=== PATIENT | male | born 1985 | race Caucasian/White ===

== ENCOUNTER 2019-06-06 19:22 | Emergency (ER) | payer OTHER ==
[~2019-06-06] VITALS: Ht 180.3 cm; Wt 102.1 kg
[2019-06-06 19:28] VITALS: BP 135/71
[2019-06-07 03:41] LABS: BASOPHILS % (AUTO) 0.5 % (0.0-2.0); EOSINOPHILS # (AUTO) 0.6 K/uL (0-0.4); EOSINOPHILS % (AUTO) 7.7 % (0.0-4.0); HEMATOCRIT 42.1 % (36-52); HEMOGLOBIN 14.2 g/dL (12.0-18.0); LYMPHOCYTES # (AUTO) 1.3 K/uL (2.0-11.5); LYMPHOCYTES % (AUTO) 16.1 % (20.5-51.1); MEAN CORPUSCULAR HEMOGLOBIN 30 pg (27-31); MEAN CORPUSCULAR HGB CONC 34 g/dL (33-37); MEAN CORPUSCULAR VOLUME 88.7 fL (80-94); MONOCYTES # (AUTO) 0.7 K/uL (0.8-1.0); MONOCYTES % (AUTO) 8.6 % (1.7-9.3); NEUTROPHILS # (AUTO) 5.6 K/uL (1.8-7.7); NEUTROPHILS % (AUTO) 67.1 % (42.2-75.2); PLATELET COUNT (AUTO) 223 K/uL (140-450); RED BLOOD CELL COUNT(AUTO) 4.75 MIL/uL (4.20-6.10); RED CELL DISTRIBUTION WIDTH 12.6 % (11.6-13.7); WHITE BLOOD COUNT (AUTO) 8.3 K/uL (4.8-10.8)
[2019-06-07 03:57] LABS: ANION GAP 10.8 (8-16); CARBON DIOXIDE 28.1 mmol/L (21-32); POTASSIUM 3.9 mmol/L (3.5-5.1)
[2019-06-07 04:03] LABS: ALBUMIN 3.6 g/dL (3.4-5.0); TOTAL BILIRUBIN 0.6 mg/dL (0.0-1.0)
[2019-06-07] MEDS: predniSONE 20 MG TAB PO STA (04:44)
[2019-06-07 05:01] VITALS: BP 128/70
== END 2019-06-07 05:01 | disposition home or self-care (01) ==
LOC: MED 19:22
DX: R21 Rash and other nonspecific skin eruption (principal)
CPT/HCPCS: 36415; 80053; 81002; 82553; 85025; 99283; J7512

== ENCOUNTER 2019-06-27 09:23 | Outpatient (CLI) | payer OTHER ==
[2019-06-27 09:59] LABS: BASOPHILS % (AUTO) 0.6 % (0.0-2.0); EOSINOPHILS # (AUTO) 0.2 K/uL (0-0.4); EOSINOPHILS % (AUTO) 2.9 % (0.0-4.0); HEMATOCRIT 43.6 % (36-52); MEAN CORPUSCULAR HEMOGLOBIN 30 pg (27-31); MEAN CORPUSCULAR HGB CONC 34 g/dL (33-37); MONOCYTES # (AUTO) 0.5 K/uL (0.8-1.0); MONOCYTES % (AUTO) 8.8 % (1.7-9.3); NEUTROPHILS # (AUTO) 2.7 K/uL (1.8-7.7); NEUTROPHILS % (AUTO) 50.7 % (42.2-75.2); PLATELET COUNT (AUTO) 236 K/uL (140-450); RED BLOOD CELL COUNT(AUTO) 4.96 MIL/uL (4.20-6.10); RED CELL DISTRIBUTION WIDTH 12.9 % (11.6-13.7); WHITE BLOOD COUNT (AUTO) 5.3 K/uL (4.8-10.8)
[2019-06-27 10:02] LABS: APPEARANCE,URINE CLEAR (CLEAR); BILIRUBIN,URINE NEGATIVE (NEGATIVE); BLOOD, URINE NEGATIVE (NEGATIVE); COLOR,URINE YELLOW (YELLOW); LEUKOCYTE ESTERASE ,URINE NEGATIVE (NEGATIVE); NITRITE, URINE NEGATIVE (NEGATIVE); PH,URINE 5.5 (5.0-9.0); UGLUCOSE NEGATIVE (NEGATIVE)
[2019-06-27 10:22] LABS: ANION GAP 10.1 (8-16); CARBON DIOXIDE 29.5 mmol/L (21-32); CHOL/HDL RATIO 3.8 (1-4.5); MAGNESIUM 2.4 mg/dL (1.8-2.4); POTASSIUM 4.6 mmol/L (3.5-5.1); THYROID STIMULATING HORMONE 3.94 uIU/mL (0.34-3.74)
== END 2019-06-27 20:34 | disposition home or self-care (01) ==
LOC: MLB 09:23
DX: Z00.01 Encounter for general adult medical examination with abnormal findings (principal); L50.9 Urticaria, unspecified; R53.83 Other fatigue; F41.1 Generalized anxiety disorder
CPT/HCPCS: 36415; 80053; 81003; 82306; 83036; 83735; 84443; 85025; 86003; 86376

== ENCOUNTER 2019-10-25 09:52 | Outpatient (CLI) | payer OTHER ==
[2019-10-25 10:40] LABS: THYROID STIMULATING HORMONE 2.66 uIU/mL (0.34-3.74)
== END 2019-10-25 21:10 | disposition home or self-care (01) ==
LOC: MLB 09:52
DX: E03.9 Hypothyroidism, unspecified (principal)
CPT/HCPCS: 36415; 84439; 84443; 86376